=== PATIENT | female | born 1975 | race Asian ===

== ENCOUNTER 2025-01-30 20:27 | Emergency (ER) | payer MEDICARE, OTHER, MEDICAID ==
[~2025-01-30] VITALS: Ht 142.2 cm; Wt 42.5 kg
[2025-01-30 20:53] VITALS: BP 143/107; PULSE 71; RESP 16; TEMP 97.8; O2SAT 99
--- NOTE | 2025-01-30 21:53 | DVH ---
CLINICAL INDICATION: left 4th finger pain TECHNIQUE: 3 radiographic views of the left 4th finger were obtained. Comparison: None FINDINGS/IMPRESSION: Soft tissue swelling is noted over the palmar surface distal phalanx left 4th finger. There are no fractures or dislocations.
[2025-01-30] MEDS ORDERED: AMOX875T4 PO (23:21)
[2025-01-30] MEDS ORDERED: ACET500T58 PO (23:21)
--- NOTE | 2025-01-30 23:21 | ED.PDOC ---
Musculoskeletal HPI Comments 49 year old female presents to ER with complaints of left 4th finger pain x 1 week. Patient states that she started experiencing pain/swelling/redness surrounding nailbed 1 week ago that got worse and part of her nail "lifted up" when she accidentally hit her left 4th finger against a cardboard box today. She reports 5/10 pain to left 4th finger without radiation and denies use of medications for current symptoms. Denies numbness/tingling, skin drainage or any further symptoms/complaints Chief Complaint: Upper Extremity Time Seen by MD: 20:53 Primary Care Provider: UNKNOWN Reviewed Notes: Nurses Notes, Medications, Allergies Allergies: Coded Allergies: NO KNOWN ALLERGIES (Verified , 05/28/24) Home Meds Active Scripts Amoxicillin & Pot Clavulanate (Amoxicillin/Potassium Cla) 875 Mg Tab, 1 TAB PO BID for 7 Days, #14 TAB 0 Refills Prov:SENDY FIGUEREDO 01/30/25 Acetaminophen (Acetaminophen) 500 Mg Tab, 500 MG PO Q4HPRN, #30 TAB 0 Refills Prov:SENDY FIGUEREDO 01/30/25 Information Source: Patient Mode of Arrival: Ambulatory Past Medical History PAST MEDICAL HISTORY: DM, HTN 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 RELATIONS History: Other Family History Family History: Unknown Social History Smoker: Non-Smoker Alcohol: Denies ETOH Use Drugs: Denies Drug Use Lives In: Home Constitutional: denies: chills, diaphoresis, fatigue, fever, malaise, sweats, weakness, others EENTM: denies: blurred vision, double vision, ear bleeding, ear discharge, ear drainage, ear pain, ear ringing, eye pain, eye redness, hearing loss, mouth pain, mouth swelling, nasal discharge, nose bleeding, nose congestion, nose pain, photophobia, tearing, throat pain, throat swelling, voice changes, others Respiratory: denies: cough, hemoptysis, orthopnea, SOB at rest, shortness of breath, SOB with excertion, stridor, wheezing, others Cardiovascular: denies: chest pain, dizzy spells, diaphoresis, Dyspnea on exertion, edema, irregular heart beat, left arm pain, lightheadedness, palpitations, PND, syncope, others Gastrointestinal: denies: abdomen distended, abdominal pain, blood streaked bowels, constipated, diarrhea, dysphagia, difficulty swallowing, hematemesis, melena, nausea, poor appetite, poor fluid intake, rectal bleeding, rectal pain, vomiting, others Genitourinary: denies: abnormal vagina bleeding, burning, dyspareunia, dysuria, flank pain, frequency, hematuria, incontinence, pain, , vagina discharge, urgency, others Neurological: denies: dizziness, fainting, headache, left sided numbness, left sided weakness, numbness, paresthesia, pre-existing deficit, right sided numbness, right sided weakness, seizure, speech problems, tingling, tremors, weakness, others Musculoskeletal: reports: others (As stated in HPI) Integumetry: reports: others (As stated in HPI) Allergic/Immunocompromised: denies: Difficulty Healing, Frequent Infections, Hives, Itching, others Hematologic/Lymphatic: denies: anemia, blood clots, easy bleeding, easy bruisi ng, swollen glands, others Endocrine: denies: excessive hunger, excessive sweating, excessive thirst, exce ssive urination, flushing, intolerance to cold, intolerance to heat, unexplained weight gain, unexplained weight loss, others Psychiatric: denies: anxiety, bipolar disorder, depression, hopeless, panic disorder, schizophrenia, sleepless, suicidal, others Physical Exam General Appearance: No Apparent Distress HEENT: PERRL/EOMI Neck: Full Range of Motion, Non-Tender, Normal Respiratory: Chest Non-Tender, Lungs Clear, No Accessory Muscle Use, No Respiratory Distress, Normal Breath Sounds Cardiovascular: No Murmur, No Gallop, Regular Rate/Rhythm Breast Exam: Deferred Gastrointestinal: NOT DONE Genitalia: Deferred Pelvic: Deferred Rectal: Deferred Extremities: Normal capillary refill, Normal range of motion Musculoskeletal : Extremity Location: Finger 4 (Mild swelling/erythema/TTP surrounding nailbed of left 4th finger with mild onycholysis noted. No drainage/further skin changes noted. Patient able to fully move all fingers of left hand. Pulses intact) Neurologic: Alert, painter set II-XII nml as Tested, No Motor Deficits, Normal Affect, Normal Mood, No Sensory Deficits Cerebellar Function: Normal Reflexes: Normal Skin: Dry, Warm Peripheral Pulses: 2+ Radial (R), 2+ Radial (L), 2+ Brachial (R), 2+ Brachial (L) Lymphatic: No Adenopathy Was a procedure done? Was a procedure done?: No Sedation Sedation?: No Differential Diagnosis EXT Differential Diagnosis: Fracture, Dislocation, Neurovascular injury X-Ray, Labs, Meds, VS Vital Signs Date Time Temp Pulse Resp B/P (MAP) Pulse Ox O2 Delivery O2 Flow Rate FiO2 01/30/25 20:53 97.8 71 16 143/107 (119) 99 97.8 PATIENT: KATHERIN FELIPECT: [id number]: [id number] : 1975 LOC: ER ROOM / BED: / AGE / SEX: 49 / F ADM STATUS: REG ER SERVICE 55 ORDERING PHYSICIAN: SENDY FIGUEREDO PROCEDURE(s): LFIN4 - L 4TH FINGER XRAY REASON: left 4th finger pain ORDER NUMBER(s): [id number], ACCESSION NUMBER(s): [id number] CLINICAL INDICATION: left 4th finger pain TECHNIQUE: 3 radiographic views of the left 4th finger were obtained. Comparison: None FINDINGS/IMPRESSION: Soft tissue swelling is noted over the palmar surface distal phalanx left 4th finger. There are no fractures or dislocations. ATED BY: MICHAEL MAYA Jr., DO DICTATED DATE/TIME: 01/30/252150 SIGNED BY: MICHAEL MAYA Jr., SIGNED DATE/TIME: 01/30/252150 CC: Left 4th finger x-ray reviewed Wound care/cleaning discussed and advised Advised to trim lifted nail edges Advised to follow up with PCP in 1-2 days Patient verbalized understanding and agreeable with current plan of care Advised to return to ER immediately if symptoms worsen Images Reviewed?: Images reviewed and evaluated by me Time of 1ST Reevaluation: 23:04 Reevaluation 1ST: N/A Patient Education/Counseling: Diagnosis, Treatment, Prognosis, Need For Follow Up Family Education/Counseling: No Family Present Departure 1 Departure Time of Disposition: 23:20 Impression: Primary Impression: Paronychia of finger of left hand Disposition: 01 HOME / SELF CARE / HOMELESS Condition: Stable e-Prescriptions Amoxicillin & Pot Clavulanate (Amoxicillin/Potassium Cla) 875 Mg Tab 1 TAB PO BID for 7 Days, #14 TAB 0 Refills Prov: SENDY FIGUEREDO 01/30/25 Acetaminophen (Acetaminophen) 500 Mg Tab 500 MG PO Q4HPRN, #30 TAB 0 Refills Prov: SENDY FIGUEREDO 01/30/25 Discharged With: Self Critical Care Note Critical Care Time?: No Stability Stability form required: No Heart Score Heart Score: Heart Score Response (Comments) Value History N/A 0 EKG N/A 0 Age N/A 0 Risk Factors N/A 0 Troponin N/A 0 Total 0 SENDY FIGUEREDO Jan 30, 2025 23:21
== END 2025-01-30 23:51 | disposition home or self-care (01) ==
LOC: ER 20:27
DX: L03.012 Cellulitis of left finger (principal); E11.9 Type 2 diabetes mellitus without complications; I10 Essential (primary) hypertension
CPT/HCPCS: 73140